=== PATIENT | male | born 1935 | race Caucasian/White ===

== ENCOUNTER 2018-09-29 09:53 | Outpatient (CLI) | payer MEDICARE ==
[~2018-09-29] VITALS: Ht 175.3 cm; Wt 65.5 kg
--- NOTE | ~2018-09-29 | HEMODYNAMI ---
PATIENT:GARRETT MAURO MEDICAL RECORD: [id number] : 31 LOCATION:D.CAT ADMISSION DATE: 09/29/18 Generatedon:09/29/201812:55 Patient name: GARRETT MAURO Patient #: [id number] SSN: : 1935 Date of study: 09/29/2018 Page: Of Hemodynamic Procedure Report Patient Data Patient Demographics Procedure consent was obtained First Name: GARRETT Gender: Male Last Name: [place] : 1935 [facility] Initial: PEEWEE Age: 83 year(s) Patient #: [id number] Race: Unknown Additional ID: [id number] Contact details Address: [address] [place] [address] State: [place] City: [place] Zip code: [address] Past Medical History Allergies: No known allergies Admission Admission Data Admission Date: 09/29/2018 Admission Time: 9:53 Lab Results Lab Result Date: 09/29/2018 Lab Result Time: 0:00 Biochemistry Name Units Result Min Max BUN mg/dl 30 --(----)-* 7 18 Creatinine mg/dl 1.3 --(---*)-- 0.6 1.3 CBC Name Units Result Min Max Hematocrit % 39.5 -*(----)-- 42 54 Hemoglobin g/dl 13 -*(----)-- 13.5 17.5 Procedure Procedure Types Cath Procedure Diagnostic Procedure Cardioversion External Procedure Description Procedure Date Procedure Date: 09/29/2018 Procedure Start Time: 12:45 Procedure End Time: 12:54 Procedure Staff Name Function Brady Boles MD Performing Physician Rylie Rivera RT Monitor Alireza Patel RT Monitor José Miguel Miguel RN Nurse Monty Matthews CRNA Additional personnel Procedure Data Procedure Complications No complications Hemodynamics Rest HGB: 13 (g/dl) Heart Rate: 71 (bpm) Snapshots Pre Cath Intra NCS Post Cath Vital Signs Time Heart Resp SPO2 etCO2 NIBP (mmHg) Rhythm Pain Sedation Rate (ipm) (%) (mmHg) Status Level (bpm) 12:27:39 69 31 100 0 145/90(124) NSR 0 (11) 10(A) , No pain 12:31:45 69 25 100 0 144/130(142) NSR 0 (11) 10(A) , No pain 12:35:54 73 11 99 0 141/86(127) NSR 0 (11) 10(A) , No pain 12:39:58 69 20 100 0 148/94(127) NSR 0 (11) 10(A) , No pain 12:44:08 70 22 100 0 150/89(125) NSR 0 (11) 10(A) , No pain 12:48:57 60 25 100 20.9 118/64(107) NSR 0 (11) 10(A) , No pain 12:53:03 60 14 100 26.9 124/62(105) NSR 0 (11) 10(A) , No pain Procedure Log Time Note 12:05:03 José Miguel Miguel RN sent for patient. Start room use. 12:09:13 Signed procedure consent form obtained from patient. 12:09:14 Diagnostic Cath status Elective 12:09:15 Time tracking: Regular hours (M-F 7:00 - 5:00) 12:09:18 Plan of Care:Hemodynamics will remain stable., Cardiac rhythm will remain stable., Comfort level will be maintained., Respiratory function will remain adequate., Patient/ family verbilizes understanding of procedure., Procedure tolerated without complication., Recovers from procedure without complications.. 12:09:32 H&P Date Dictated: 09/18/2018 Within 30 days and on chart., H&P Addendum completed by physician on day of procedure. (MUST COMPLETE FOR ALL OUTPATIENTS). 12:09:44 Patient allergic to No known allergies 12:21:52 Patient arrived from Pre/Post Procedure Room to [facility] 2. Patient remains on bed/stretcher for procedure. 12:21:53 Warm blankets applied, and parisa hugger turned on for patient comfort. 12:21:54 Correct patient and procedure confirmed by team. 12:21:54 ECG and BP/O2 sat monitors applied to patient. 12:26:32 Vital chart was started 12:26:33 Baseline sample Acquired. 12::42 Pre-procedure instructions explained to patient. 12:26:43 Pre-op teaching completed and patient verbalized understanding. 12::44 Family in patients room. 12::46 Patient NPO since Midnight. 12::49 Is patient on blood thinner?Yes 12::54 ACC The patient was administered the following blood thiners within the last 24 hours: Eliquis 12:27:04 Patient diabetic? Yes. 12:27:12 If diabetic: On Metformin? No 12:27:17 Previous problem with sedation/anesthesia? No . 12:27:18 Snore? Yes 12:27:20 Sleep apnea? Yes 12:27:21 Deviated septum? No 12:27:21 Opens mouth fully? Yes 12:27:22 Sticks out tongue? Yes 12:27:24 Airway obstruction? No ? 12:27:26 Dentures? No ? 12:27:35 IV patent on arrival in left hand with 0.9% NaCl at [facility]. 12::46 Lab Result : BUN 30 mg/dl 12::46 Lab Result : Creatinine 1.3 mg/dl 12::46 Lab Result : Hemoglobin 13 g/dl 12::46 Lab Result : Hematocrit 39.5 % 12::48 Lab results completed and on chart. 12::54 Right groin area was prepped with chlora-prep and draped in sterile fashion 12::55 Alarms reviewed by R. N. 12::55 Sharps counted by scrub and verified by R.N. 12:30:09 Quick Combo opened to sterile field. 12:30:39 Baseline sample Acquired. 12::55 Rhythm: atrial fibrillation 12:30:56 Full Disclosure recording started 12::08 --------ALL STOP TIME OUT------ 12:43:11 Final Timeout: patient, procedure, and site verified with staff and physician. All members of the team are in agreement. 12:43:22 Sedation plan: TIVA Medication:Propofol 12:44:57 Monty Matthews TIPPLE REPAIRER present and monitoring patient for TIVA. 12:45:03 Procedure started. 12:45:29 Quick combo pads placed on patients chest and back. 12:47:47 Defibrillator synced and charged to 275 Joules. 12:47:59 Shock delivered. 12:48:27 Patient cardioverted to sinus rhythm , paced. 12:48:31 Procedure ended.(Physican Out) 12:48:53 Post-procedure physical assessment completed. ASA score P 2 - A patient with mild systemic disease as per Brady Boles MD. 12:48:58 Post procedure rhythm: sinus rhythm , paced 12:49:47 Procedure and supply charges have been captured, reviewed, submitted and are correct. 12:49:57 Procedure Complication : No complications 12:54:41 Vital chart was stopped 12:54:41 See physician's report for complete and final results. 12:54:43 Report given to Pre/Post Procedure Room. 12:54:45 Patient transfered to Pre/Post Procedure Room with Bed. 12:54:49 Procedure ended. 12:54:49 Full Disclosure recording stopped 12:54:52 End room use (Document Last) Device Usage Item Manufacture Quantity Catalog Hospital Part Current Minimal Lot# / Name Number Charge Number [facility] ut# Code Conergy 1 [id number] Combo Signature Audit Galt Stage Time Signature Unsigned Intra-Procedure 09/29/2018 Rylie Rivera 12:55:12 PM RT(R) Signatures Monitor : Rylie Rivera Signature : RT Date : Time : Monitor : Alireza Patel RT Signature : Date : Time : [place] [id number] [facility] [place] [address]
[2018-09-29] MEDS ORDERED: STARLIX60 MG PO (10:17)
[2018-09-29] MEDS ORDERED: BENTYL10 MG PO (10:18)
[2018-09-29] MEDS ORDERED: ELIQUIS2.5 MG PO (10:19)
[2018-09-29] MEDS ORDERED: BETAPACE 80 MG80 MG PO (10:19)
[2018-09-29] MEDS ORDERED: RANITIDINE HCL150 M1 PO (10:20)
[2018-09-29] MEDS ORDERED: LEVOTHYROXINE50 MCG PO (10:21)
[2018-09-29] MEDS ORDERED: ZOCOR40 MG PO (10:21)
[2018-09-29] MEDS ORDERED: JANUVIA100 MG PO (10:23)
[2018-09-29] MEDS ORDERED: BAYER CHEWABLE81 MG PO (10:24)
[2018-09-29] MEDS ORDERED: HYDROXYZINE HCL10 MG PO (10:24)
[2018-09-29] MEDS ORDERED: KENALOG IN ORABA5 GM TOPICAL (10:24)
[2018-09-29] MEDS ORDERED: FIBERCON625 MG PO (10:25)
[2018-09-29] MEDS ORDERED: MULTI-DAY VITAM1 TAB PO (10:25)
[2018-09-29 10:28] VITALS: BP 151/90; Ht 175.3 cm; Wt 65.5 kg
[2018-09-29 10:45] LABS: ANION GAP 13.2 mmol/L (8-16); CALCIUM 9.8 mg/dL (8.5-10.1); CARBON DIOXIDE 25.6 mmol/L (21.0-32.0); CREATININE - SERUM 1.3 mg/dL (0.6-1.3); POTASSIUM - SERUM 4.8 mmol/L (3.5-5.1)
[2018-09-29 10:47] LABS: BASOPHILS 0.9 % (0-2); EOSINOPHILS 7.5 % (0-7); HEMATOCRIT 39.5 % (42.0-54.0); IMMATURE GRANULOCYTES 0.4 % (0-5); LYMPHOCYTES 13.8 % (15-50); MCH 28.9 pg (26.0-34.0); MCHC 32.9 g/dL (31.0-37.0); MCV 87.8 fL (80.0-100.0); MEAN PLATELET VOLUME 9.7 fL (7.4-10.4); NEUTROPHILS 67.4 % (40-80); PLATELET COUNT 243 10x3/uL (130-400); RDW 14.1 % (11.5-14.5); WBC 9.5 10x3/uL (4.8-10.8)
[2018-09-29 10:50] LABS: INR 1.27 (0.85-1.17); PROTIME 15.3 SECONDS (11.6-15.0)
--- NOTE | 2018-09-29 13:20 | NUR ---
ROOM AIR, NO RESP DISTRESS. NO C/O PAIN OR NAUSEA. VSS. SIPPING ON DRINK AND EATING SANDWICH. NO NEEDS VOICED. CALL LIGHT WITHIN REACH.
--- NOTE | 2018-09-29 13:45 | NUR ---
LEFT PIV D/C'D WITH CATHETER INTACT, BAND AID TO SITE. UP TO BEDSIDE TO GET DRESSED. AMBULATED TO RESTROOM.
--- NOTE | 2018-09-29 13:52 | NUR ---
DISCHARGE INSTRUCTIONS GIVEN, VERBALIZED UNDERSTANDING.
--- NOTE | 2018-09-29 14:00 | NUR ---
TAKEN OUT VIA WHEELCHAIR BY CATH TANNING CONSULTANT. LEFT FACILITY WITH FAMILY AND ALL PERSONAL BELONGINGS.
--- NOTE | 2018-09-29 15:13 | OP ---
PATIENT NAME: GARRETT MAURO MEDICAL RECORD: [id number] :[birth year] LOCATION:D.CAT ADMISSION DATE: SURGEON: WHIT MURRAY MD DATE OF OPERATION: 09/29/2018 DATE OF SERVICE: 09/29/2018 PROCEDURE: DC cardioversion. INDICATION: Atrial fibrillation. PROCEDURE IN DETAIL: IV conscious sedation was per anesthesia. Continuous heart rate, O2 saturation, blood pressure monitoring all undertaken, all of which remains stable. He received 1 shock at 275 joules restoring sinus rhythm. OVERALL IMPRESSION: Successful DC cardioversion from atrial fibrillation to sinus rhythm. TRANSINT:[id number] Voice Confirmation ID: [id number] DOCUMENT ID: [id number] WHIT MURRAY MD at 1513 CC: [id number] DICTATION DATE: 09/29/18 1252 ORACLE REPORTS DEVELOPER: 09/29/18 1329 DEP CLI 09/29/[address] [address]
== END 2018-09-29 14:00 | disposition home or self-care (01) ==
LOC: D.CATH 09:53
PROVIDERS: ATTEND Internal Medicine Interventional Cardiology
DX: I48.91 Unspecified atrial fibrillation (principal); Z01.812 Encounter for preprocedural laboratory examination